=== PATIENT | female | born 2005 | race Caucasian/White ===

== ENCOUNTER 2024-07-01 23:10 | Emergency (ER) | payer BC ==
[2024-07-01] MEDS ORDERED: cefTRIAXone 500 MG Vial IM ONE (23:11)
[2024-07-02 00:40] LABS: APPEARANCE,URINE CLEAR; BILIRUBIN,URINE NEGATIVE (NEGATIVE); COLOR,URINE YELLOW; GLUCOSE,URINE NEGATIVE (NEGATIVE); KETONES,URINE NEGATIVE (NEGATIVE); OCCULT BLOOD,URINE NEGATIVE (NEGATIVE); PROTEIN,URINE NEGATIVE (NEGATIVE)
[2024-07-02 00:41] LABS: BACTERIA,URINE RARE (NEGATIVE); EPITHELIAL CELLS,URINE MODERATE (NONE-FEW); LEUKOCYTE ESTERASE,URINE SMALL (NEGATIVE); NITRITE,URINE NEGATIVE (NEGATIVE); RBC,URINE 0-1 (0-2/HPF); UROBILINOGEN,URINE 0.2 EU/dL (<2.0)
[2024-07-02] MEDS: Doxycycline 100 MG Cap PO ONE (00:41)
[2024-07-02] MEDS: cefTRIAXone 1 GM Vial IM ONE (00:42)
[2024-07-02] MEDS: Water For Injection, Sterile 20 ML ONE (00:42)
[2024-07-02 00:59] LABS: CANDIDA DNA PROBE NEGATIVE (NEGATIVE); GARDNERELLA DNA PROBE POSITIVE (NEGATIVE); TRICHOMONAS DNA PROBE NEGATIVE (NEGATIVE)
[2024-07-02 01:47] LABS: C. TRACHOMATIS BY PCR NOT DETECTED; N. GONORRHOEAE BY PCR NOT DETECTED
== END 2024-07-02 01:55 | disposition home or self-care (01) ==
LOC: MW.ED 23:10
DX: N76.0 Acute vaginitis (principal); N39.0 Urinary tract infection, site not specified; Z91.018 Allergy to other foods; Z88.0 Allergy status to penicillin; Z75.8 Other problems related to medical facilities and other health care
CPT/HCPCS: 81001; 87086; 87480; 87491; 87510; 87591; 87660; 96372; 99283; A9270; J0696

== ENCOUNTER 2024-08-05 13:03 | Emergency (ER) | payer BC ==
[2024-08-05 13:57] LABS: APPEARANCE,URINE CLEAR; BILIRUBIN,URINE NEGATIVE (NEGATIVE); COLOR,URINE YELLOW; GLUCOSE,URINE NEGATIVE (NEGATIVE); KETONES,URINE NEGATIVE (NEGATIVE); LEUKOCYTE ESTERASE,URINE NEGATIVE (NEGATIVE); NITRITE,URINE NEGATIVE (NEGATIVE); OCCULT BLOOD,URINE NEGATIVE (NEGATIVE); PH,URINE 6.5 (5.0-8.0); PROTEIN,URINE NEGATIVE (NEGATIVE); UROBILINOGEN,URINE 0.2 EU/dL (<2.0)
[2024-08-05 14:46] LABS: CANDIDA DNA PROBE NEGATIVE (NEGATIVE); GARDNERELLA DNA PROBE POSITIVE (NEGATIVE); TRICHOMONAS DNA PROBE NEGATIVE (NEGATIVE)
== END 2024-08-05 15:18 | disposition home or self-care (01) ==
LOC: MW.ED 13:03
DX: N76.0 Acute vaginitis (principal); Z88.0 Allergy status to penicillin; Z91.018 Allergy to other foods; Z75.8 Other problems related to medical facilities and other health care; Z79.899 Other long term (current) drug therapy
CPT/HCPCS: 81003; 81025; 87480; 87510; 87660; 99283